=== PATIENT | female | born 1955 | race Caucasian/White ===

== ENCOUNTER 2018-08-26 06:55 | Day surgery (SDC) | payer BC ==
[~2018-08-26 06:55] MED LIST: Lactated Ringers 1,000 ML IV SCH
[2018-08-26] MEDS ORDERED: Sodium Chloride 0.9% 10 ML Syringe FLUSH PRN (07:00)
[2018-08-26] MEDS ORDERED: Lactated Ringers 1,000 ML IV SCH (07:00)
[2018-08-26] MEDS ORDERED: fentaNYL 100 MCG/2 ML SDV ONE (07:49)
[2018-08-26] MEDS ORDERED: Propofol 200 MG/20 ML SDV ONE ×2 (07:50→08:21)
--- NOTE | 2018-08-26 09:17 | OR ---
PREOPERATIVE DIAGNOSIS: Positive Cologuard test. POSTOPERATIVE DIAGNOSES: 1. Colonic polyps x2. 2. Sigmoid diverticulosis. PROCEDURE PROPOSED: Total flexible colonoscopy. PROCEDURES DONE: 1. Total flexible colonoscopy with hot snare polypectomy x1. 2. Cold biopsy forceps polypectomy x1. INDICATION: This is a 62-year-old female who was found on recent physical exam to have a positive Cologuard test, and she has never had a colonoscopy and was referred for said procedure. She denies any symptomatology, and she has a negative family history for colon cancer. TECHNIQUE: The patient was brought to the endoscopy suite and placed in left lateral decubitus position. She was sedated per [employer] with propofol. The flexible video colonoscope was then passed transanally and, under visualization, was advanced to the cecum. Examination revealed normal ascending, transverse and descending colon; however, in the low descending colon, at 35 cm, there was a small polyp removed with about 3 bites of the cold biopsy forceps and submitted for pathologic examination. She was then found to have some sigmoid diverticulosis and then, at 20 cm, she had a fairly large friable pedunculated adenomatous polyp that was removed by hot snare technique and retrieved with suction. This one measured about 9 mm in size. The remainder of the rectosigmoid was unremarkable, except for some diverticulosis throughout the entire sigmoid colon. She tolerated the procedure well, as the scope was then withdrawn. FINAL IMPRESSION: 1. Colonic polyps x2, removed. 2. Sigmoid diverticulosis. PLAN: She will be sent a letter with pathology report. I felt that she should continue with colonic surveillance hereafter every 5 years due to her significant polyp findings. SCM: 08/26/2018 08:42:02 MODL: 08/26/2018 09:06:03 /[id number]
== END 2018-08-26 09:50 | disposition home or self-care (01) ==
LOC: VM.SDS 06:55
PROVIDERS: ATTEND Surgery
DX: D12.5 Benign neoplasm of sigmoid colon (principal); K57.30 Diverticulosis of large intestine without perforation or abscess without bleeding
CPT/HCPCS: J2704; J3010; J7120